=== PATIENT | male | born 1990 ===

== ENCOUNTER 2022-09-24 14:12 | Emergency (ER) | payer MEDICAID | END 2022-09-24 15:57 | disposition left against medical advice (07) | LOC: ER 14:13 | DX: F10.20 Alcohol dependence, uncomplicated (principal); Z53.21 Procedure and treatment not carried out due to patient leaving prior to being seen by health care provider; Y90.9 Presence of alcohol in blood, level not specified ==

== ENCOUNTER 2023-03-01 14:24 | Emergency (ER) | payer MEDICAID ==
[~2023-03-01] VITALS: Ht 182.9 cm; Wt 95.5 kg
[2023-03-01 14:39] VITALS: BP 152/91; PULSE 136; TEMP 98.2; O2SAT 99
[2023-03-01 14:45] VITALS: RESP 20
== END 2023-03-01 15:01 ==
LOC: ER 14:26
DX: F10.129 Alcohol abuse with intoxication, unspecified (principal); V98.8XXA Other specified transport accidents, initial encounter; Y93.89 Activity, other specified; Y92.89 Other specified places as the place of occurrence of the external cause; Y99.8 Other external cause status
CPT/HCPCS: 99283